=== PATIENT | male | born 1965 | race Caucasian/White ===

== ENCOUNTER 2019-04-26 11:51 | Emergency (ER) | payer MEDICARE, SELFPAY ==
[2019-04-26 11:57] VITALS: BP 120/80; PULSE 80; RESP 16; TEMP 36.5; O2SAT 98
--- NOTE | 2019-04-26 12:06 | W.ED.GENAD ---
Discharge Plan Disposition Patient Disposition: HOME Condition: Good Discharge Details Chief Complaint: AnimalBite Clinical Impression: Tick bite of buttock [facility] Discharge Instructions Instructions: Tick Bite (ED) Additional Instructions: If you develop any new arthralgias, fever chills, or other symptoms feel free to return for reassessment of possible tickborne illnesses. Otherwise follow-up with your primary care provider as needed for reassessment Referrals: Fozia Medina STORAGE GARAGE ATTENDANT [NURSE PRACTITIONER] - (As needed for reassessment) Discharge Data Discharge Date/Time-TO BE ENTERED AT DEPARTURE: 04/26/19 12:15 Medical Decision Making Patient presenting to the emergency department chief complaint of tick bite. Patient states that he noticed aching to his left buttock that occurred 1 day ago and he remove the tick. patient denies any other symptoms, arthralgias, fever chills. Physical exam is unremarkable except for erythema consistent with insect bite and more than likely tick. No tick is present at this time. Patient does have tick present which is a deer tick. Patient does report that this may have been attached greater than 24 hours before he noticed the aching to his left buttock. There is no bull's-eye type rash and given that patient is otherwise asymptomatic I do feel that single dose of doxycycline is warranted otherwise watchful waiting is appropriate. Return precautions discussed. After discussion of diagnosis and plan of care patient has no further needs, questions, or concerns and states clear understanding to return to the emergency department for any worsening symptoms. HPI General Mode of arrival: ambulatory. Date/Time Provider Initiated Documentation: 04/26/19 11:54. Limitations to Documentation: no limitations. Information obtained by: patient and RN notes reviewed. History of Present Illness 53 year old M presents to the emergency department with the chief complaint of Tick bite, described as mild, with intensity rated at 3. Quality is described as aching, and is localized to the buttocks. Patient started experiencing this day(s) (1) and it has been constant. Patient notes no other symptoms.. Patient did receive the following treatments prior to arrival, none General Stated Complaint: AnimalBite BIANCA: 4 Review of Systems Constitutional Denies body ache(s), Denies fever(s) and Denies headache(s) ENT Denies headache(s) Musculoskeletal Denies myalgias, Denies arthralgias and Denies joint swelling Integumentary/Breasts Reports as per HPI, Denies erythema and Denies rash Neurologic Denies headache(s) and Denies paresthesias [facility] Social History Smoking/Tobacco Use Status: Current-Occasional Tobacco Type: cigarettes Alcohol Intake: current Alcohol Intake frequency: a few times a week Drug use: Occasionally Substance use type: marijuana Do you feel safe at home: Yes Do you feel safe in your relationship?: Yes Exam Const General: cooperative, comfortable and no acute distress Orientation: alert, awake and oriented x3 Resp Effort & Inspection: normal respiratory effort and able to speak in complete sentences Skin General skin exam: erythema (Circular area central bite silvia consistent with tick bite to left buttock), no fluctuance, no induration and other Rashes: no rashes Neuro General: alert, awake and oriented x3 Course Vital Signs Temperature 36.5 C 04/26/19 11:57 Pulse 80 04/26/19 11:57 Respiratory Rate 16 04/26/19 11:57 Blood Pressure 120/80 04/26/19 11:57 Pulse Oximetry 98 04/26/19 11:57 Temperature 36.5 C 04/26/19 11:57 Pulse 80 04/26/19 11:57 Respiratory Rate 16 04/26/19 11:57 Blood Pressure 120/80 04/26/19 11:57 Blood Pressure Position Sitting 04/26/19 11:57 Pulse Oximetry 98 04/26/19 11:57 Oxygen Delivery Method Room Air 04/26/19 11:57 Oxygen Flow Rate 0 04/26/19 11:57 Pain Level 3 04/26/19 11:57
--- NOTE | 2019-04-26 12:09 | ED.GENADUL_ITS ---
Discharge Plan Disposition Patient Disposition: HOME Condition: Good Discharge Details Chief Complaint: AnimalBite Clinical Impression: Tick bite of buttock [facility] Bernardo Hair Discharge Instructions Instructions: Tick Bite (ED) Additional Instructions: If you develop any new arthralgias, fever chills, or other symptoms feel free to return for reassessment of possible tickborne illnesses. Otherwise follow-up with your primary care provider as needed for reassessment Referrals: Fozia Medina FILER FINISH [NURSE PRACTITIONER] - (As needed for reassessment) Discharge Data Discharge Date/Time-TO BE ENTERED AT DEPARTURE: 04/26/19 12:15 Medical Decision Making Patient presenting to the emergency department chief complaint of tick bite. Patient states that he noticed aching to his left buttock that occurred 1 day ago and he remove the tick. patient denies any other symptoms, arthralgias, fever chills. Physical exam is unremarkable except for erythema consistent with insect bite and more than likely tick. No tick is present at this time. Patient does have tick present which is a deer tick. Patient does report that this may have been attached greater than 24 hours before he noticed the aching to his left buttock. There is no bull's-eye type rash and given that patient is otherwise asymptomatic I do feel that single dose of doxycycline is warranted otherwise watchful waiting is appropriate. Return precautions discussed. After discussion of diagnosis and plan of care patient has no further needs, questions, or concerns and states clear understanding to return to the emergency department for any worsening symptoms. HPI General Mode of arrival: ambulatory . Date/Time Provider Initiated Documentation: 04/26/19 11:54 . Limitations to Documentation: no limitations . Information obtained by: patient and RN notes reviewed . History of Present Illness 53 year old M presents to the emergency department with the chief complaint of Tick bite, described as mild, with intensity rated at 3. Quality is described as aching, and is localized to the buttocks. Patient started experiencing this day(s) (1) and it has been constant. Patient notes no other symptoms.. Patient did receive the following treatments prior to arrival, none General Stated Complaint: AnimalBite BIANCA: 4 Review of Systems Constitutional Denies body ache(s), Denies fever(s) and Denies headache(s) ENT Denies headache(s) Musculoskeletal Denies myalgias, Denies arthralgias and Denies joint swelling Integumentary/Breasts Reports as per HPI, Denies erythema and Denies rash Neurologic Denies headache(s) and Denies paresthesias [facility] Social History Smoking/Tobacco Use Status: Current-Occasional Tobacco Type: cigarettes Alcohol Intake: current Alcohol Intake frequency: a few times a week Drug use: Occasionally Substance use type: marijuana Do you feel safe at home: Yes Do you feel safe in your relationship?: Yes Exam Const General: cooperative, comfortable and no acute distress Orientation: alert, awake and oriented x3 Resp Effort & Inspection: normal respiratory effort and able to speak in complete sentences Skin General skin exam: erythema (Circular area central bite silvia consistent with tick bite to left buttock), no fluctuance, no induration and other Rashes: no rashes Neuro General: alert, awake and oriented x3 Course Vital Signs Temperature 36.5 C 04/26/19 11:57 Pulse 80 04/26/19 11:57 Respiratory Rate 16 04/26/19 11:57 Blood Pressure 120/80 04/26/19 11:57 Pulse Oximetry 98 04/26/19 11:57 Temperature 36.5 C 04/26/19 11:57 Pulse 80 04/26/19 11:57 Respiratory Rate 16 04/26/19 11:57 Blood Pressure 120/80 04/26/19 11:57 Blood Pressure Position Sitting 04/26/19 11:57 Pulse Oximetry 98 04/26/19 11:57 Oxygen Delivery Method Room Air 04/26/19 11:57 Oxygen Flow Rate 0 04/26/19 11:57 Pain Level 3 04/26/19 11:57
[2019-04-26] MEDS: Doxycycline Hyclate 100 MG CAP 200 MG PO (12:10)
== END 2019-04-26 12:15 | disposition home or self-care (01) ==
LOC: ER 12:22
PROVIDERS: Emergency Provider Nurse Practitioner Family
DX: S30.860A Insect bite (nonvenomous) of lower back and pelvis, initial encounter (principal); W57.XXXA Bitten or stung by nonvenomous insect and other nonvenomous arthropods, initial encounter
CPT/HCPCS: 99283

== ENCOUNTER → 2024-03-30 13:44 | Outpatient (BNVA) | payer MEDICARE, MEDICAID, SELFPAY | PROVIDERS: PCP Nurse Practitioner Family; Referring Provider Nurse Practitioner Family; Visit Provider Student in an Organized Health Care Education/Training Program | DX: M19.012 Primary osteoarthritis, left shoulder (principal); M19.011 Primary osteoarthritis, right shoulder | CPT/HCPCS: 99203 ==

== ENCOUNTER → 2024-05-26 01:49 | Outpatient (CLI) | payer MEDICARE, MEDICAID, SELFPAY ==
--- NOTE | 2024-05-26 16:31 | DI.RAD_ITS ---
Exam(s) RF JOINT INJ. FLUORO GUID RAD EXAM: RF JOINT INJ. FLUORO GUID RAD CLINICAL HISTORY: LEFT SHOULDER PAIN,m19.012,fluoro guided injection,m19.012. TECHNIQUE: 2D and realtime digital imaging was performed. CONTRAST MATERIAL: Intra-articular Omnipaque 300-2 cc COMPARISON: No exams were available for comparison FINDINGS: This left glenohumeral joint was performed at the request of the referring orthopedic surgeon. Patient was consented prior to this procedure. Patient was placed in the supine position on the fluoroscopy table. Using sterile technique and adequate skin-subcutaneous anesthesia fluoroscopic guidance was used to a dvance a 22 gauge spinal needle into the left glenohumeral joint using an anterior approach. Intra-a rticular position was confirmed with intra-articular injection of Omnipaque-300 Thereafter a sterile solution of 80 milligrams Depo-Medrol and 3 cc Marcaine was injected into the jennifer int space. The patient tolerated this procedure well and there were no intraprocedural complications. IMPRESSION: Successful left shoulder glenohumeral joint steroid injection RADIATION DOSE DELIVERED: Ka,r=1.26mGy
--- NOTE | 2024-05-26 16:32 | DI.RAD_ITS ---
Exam(s) RF JOINT INJ. FLUORO GUID RAD EXAM: RF JOINT INJ. FLUORO GUID RAD CLINICAL HISTORY: R SHOULDER PAIN,m19.011, fluoro guided injection, arthritis rt glenohumeral. TECHNIQUE: 2D and realtime digital imaging was performed. CONTRAST MATERIAL: Omnipaque 300 2 cc intra-articular COMPARISON: No exams were available for comparison FINDINGS: This right shoulder glenohumeral joint steroid injection was performed at the request of the referantoinette willett orthopedic surgeon. Patient was consented prior to this procedure. Patient was placed in the supine position on the fluoroscopy table. Using sterile technique and adequate skin-subcutaneous anesthesia, fluoroscopic guidance was used to advance a 22 gauge spinal needle into the glenohumeral joint using an anterior approach. Intra-artic ular position was confirmed with 2 cc Omnipaque 300. Thereafter a sterile solution of 80 milligram D epo-Medrol and 3 cc Marcaine were injected into the glenohumeral joint space. Patient tolerated this procedure well and there were no intraprocedural complications. IMPRESSION: Successful right glenohumeral joint steroid injection RADIATION DOSE DELIVERED: Kar=0.34mGy
[2024-05-26] MEDS: methylPREDNISolone ACETATE 40 MG/ML VIAL 160 MG IM (16:34)
[2024-05-26] MEDS: Bupivacaine 0.5% Pres-Free 10 ML VIAL IJ (16:35)
[2024-05-26] MEDS: Omnipaque 300 MG/ML 10 ML BTL IJ (16:36)
[2024-05-26] MEDS: Lidocaine 1% Multi-Dose 50 ML VIAL IJ (16:36)
== END ==
PROVIDERS: PCP Nurse Practitioner Family; Visit Provider Student in an Organized Health Care Education/Training Program
DX: M19.012 Primary osteoarthritis, left shoulder (principal); M19.011 Primary osteoarthritis, right shoulder
CPT/HCPCS: 20610; 77002; J0665; J1010

== ENCOUNTER → 2024-07-19 13:28 | Outpatient (BNVA) | payer MEDICARE, MEDICAID, SELFPAY | PROVIDERS: PCP Nurse Practitioner Family; Referring Provider Nurse Practitioner Family; Visit Provider Student in an Organized Health Care Education/Training Program | DX: M19.012 Primary osteoarthritis, left shoulder (principal); M19.011 Primary osteoarthritis, right shoulder; M25.59 Pain in other specified joint | CPT/HCPCS: 99214 ==

== ENCOUNTER 2024-08-24 02:30 | Outpatient (CLI) | payer MEDICARE, MEDICAID, SELFPAY ==
--- NOTE | 2024-08-24 09:15 | DI.MRI_ITS ---
Exam(s) MR UPPER JOINT LT WO EXAM: MR UPPER JOINT LT WO CLINICAL HISTORY: L SHOULDER PAIN,arthritis lt glenohumeral joint,m19.012. TECHNIQUE: Multiplanar multisequence MRI was performed. COMPARISON: RF RF JOINT INJ. FLUORO GUID RAD from 05/26/2024 FINDINGS: BONES: There is no fracture or contusion pattern. JOINTS: Mild degenerative changes are seen at the acromioclavicular joint. There are degenerative ch anges seen at the glenohumeral joint with articular cartilage loss. TENDONS: Supraspinatus: No evidence of a tendon tear. Infraspinatus: No evidence of a tendon tear. Subscapularis: No evidence of a tendon tear. Teres Minor: Unremarkable. Biceps and [place]: Unremarkable. MUSCLES: Unremarkable. GLENOID LABRUM: The inferior and posterior labrum is heterogeneous and ill-defined. There also fluid collections adjacent to the posterior inferior glenoid which appear to be extra-articular and may re flect a paralabral cyst. The findings are suspicious for tear of the posterior/inferior labrum. SOFT TISSUES: Unremarkable. LIGAMENTS: Unremarkable. OTHER: Subacromial and subdeltoid bursae are unremarkable. IMPRESSION: 1. No evidence of a rotator cuff tear. 2. Heterogeneous and ill-defined posterior inferior labrum suspicious for tear/degeneration. There i s a fluid collection which appears to communicate with the labral tissue posterior knee inferiorly wh ich may represent a paralabral cyst. 3. Mild degenerative changes seen at both the acromioclavicular and glenohumeral joints. DATA REPOSITORY:
== END 2024-08-24 02:50 ==
PROVIDERS: PCP Nurse Practitioner Family; Visit Provider Student in an Organized Health Care Education/Training Program
DX: M19.012 Primary osteoarthritis, left shoulder (principal)
CPT/HCPCS: 73221

== ENCOUNTER → 2024-08-31 09:52 | Outpatient (BNVA) | payer MEDICARE, MEDICAID, SELFPAY | PROVIDERS: PCP Nurse Practitioner Family; Referring Provider Nurse Practitioner Family; Visit Provider Student in an Organized Health Care Education/Training Program | DX: M19.011 Primary osteoarthritis, right shoulder (principal); M19.012 Primary osteoarthritis, left shoulder; M25.59 Pain in other specified joint | CPT/HCPCS: 99213 ==

== ENCOUNTER 2025-02-16 01:20 | Outpatient (CLI) | payer MEDICARE, MEDICAID, SELFPAY ==
--- NOTE | 2025-02-16 | DI.CT_ITS ---
Exam(s) CT CHEST WO EXAM: CT CHEST WO CLINICAL HISTORY: R05.3 Chronic cough, R/O lung cancer TECHNIQUE: Imaging Protocol: Axial computed tomography images with coronal and sagittal reformatted images were created and reviewed. Computer aided detection (CAD) was utilized. CONTRAST MATERIAL: Intravenous: Omnipaque 350 Contrast volume:structured data ml. COMPARISON: CR Shoulder Left Complete 2 Views from 02/22/2024 CR Shoulder Right Complete 2 View from 02/22/2024 FINDINGS: Pulmonary parenchyma: No consolidation. No dominant measurable mass. Tracheobronchial tree: No bronchiectasis or mucous plugging. Mediastinum and [place]: No dominant adenopathy or fluid collection. Pleura: No effusion. No pneumothorax. Heart: The heart is not dilated. Minimal coronary artery calcifications are seen. Aorta: Thoracic aorta non-dilated. Minimal atherosclerotic changes. Pulmonary arteries: Not dilated. Upper abdomen: No acute findings. Bones: Mild degenerative changes in the spine. Soft tissues: Unremarkable. IMPRESSION: No acute abnormality.No evidence of malignancy. RADIATION DOSE DELIVERED: 248.17mGy.cm Total DLP DATA REPOSITORY: All CT scans at this facility are submitted to the National Radiology Data Registry (NRDR) Dose Index Registry (DIR) with the [employer] (A[employer]). RADIATION OPTIMIZATION: All CT scans at this facility use at least one of these dose optimization te chniques: automated exposure control; mA and/or kV adjustment per patient size (includes targeted exa ms where dose is matched to clinical indication); or iterative reconstruction.
--- NOTE | 2025-02-16 | DI.CT_ITS ---
Exam(s) CT HEAD WO EXAM: CT HEAD WO CLINICAL HISTORY: R41.89 Other symptoms signs involving cognitive functions awareness. TECHNIQUE: Imaging Protocol: Axial computed tomography images with coronal and sagittal reformatted images were created and reviewed COMPARISON: No exams were available for comparison FINDINGS: Ventricles and Extra axial spaces: Normal in size and morphology for the patient's age. Hemorrhage: None. Cerebral parenchyma: No evidence of acute infarct or mass. Midline shift: None. Brainstem/Cerebellum: Normal. Calvarium: Normal. Visualized Paranasal sinuses:Clear. Mastoids: Clear. Soft Tissues: Unremarkable. ORBITS: Unremarkable. PITUITARY: Not enlarged. IMPRESSION: No acute intracranial process. RADIATION DOSE DELIVERED: 989.33mGy.cm Total DLP DATA REPOSITORY: All CT scans at this facility are submitted to the National Radiology Data Registry (NRDR) Dose Index Registry (DIR) with the [employer] (ACR). RADIATION OPTIMIZATION: All CT scans at this facility use at least one of these dose optimization te chniques: automated exposure control; mA and/or kV adjustment per patient size (includes targeted exa ms where dose is matched to clinical indication); or iterative reconstruction.
== END 2025-02-16 01:40 ==
LOC: DI 01:20
PROVIDERS: PCP Nurse Practitioner Family; Visit Provider Nurse Practitioner Family
DX: R41.89 Other symptoms and signs involving cognitive functions and awareness (principal); R05.3 Chronic cough
CPT/HCPCS: 71250; 70450

== ENCOUNTER → 2025-07-13 08:39 | Outpatient (BNVA) | payer MEDICARE, MEDICAID, SELFPAY | PROVIDERS: PCP Nurse Practitioner Family; Referring Provider Nurse Practitioner Family; Visit Provider Nurse Practitioner Gerontology | DX: R10.2 Pelvic and perineal pain (principal); M54.50 Low back pain, unspecified; I10 Essential (primary) hypertension | CPT/HCPCS: 99215 ==

== ENCOUNTER → 2025-09-28 13:19 | Outpatient (BNVA) | payer MEDICARE, MEDICAID, SELFPAY | PROVIDERS: PCP Nurse Practitioner Family; Referring Provider Nurse Practitioner Family; Visit Provider Urology | DX: N50.82 Scrotal pain (principal); G89.4 Chronic pain syndrome | CPT/HCPCS: 99214 ==